=== PATIENT | male | born 1955 | race Caucasian/White ===

== ENCOUNTER 2017-01-23 09:34 | Emergency (ER) | payer SELFPAY ==
[~2017-01-23] VITALS: Ht 172.7 cm; Wt 99.2 kg
[~2017-01-23 09:34] MED LIST: Cleocin PO; ROBAXIN500 MG PO; ULTRAM50 MG PO; VOLTAREN75 MG PO; Vibramycin, Doryx PO; ZESTRIL5 MG PO; oxyCODONE PO
[2017-01-23] MEDS ORDERED: LISINOPRIL5 MG PO (11:19)
[2017-01-23] MEDS ORDERED: XANAX2 MG PO (11:19)
[2017-01-23] MEDS ORDERED: FLONASE16 G1 BOTH NARES (11:38)
[2017-01-23 11:56] VITALS: BP 120/73
== END 2017-01-23 11:56 | disposition home or self-care (01) ==
LOC: EME 09:34
DX: J06.9 Acute upper respiratory infection, unspecified (principal); I10 Essential (primary) hypertension; Z87.891 Personal history of nicotine dependence
CPT/HCPCS: 71020; 93005; 99281; 99283

== ENCOUNTER 2017-04-12 13:11 | Emergency (ER) | payer SELFPAY ==
[~2017-04-12] VITALS: Ht 172.7 cm; Wt 98.0 kg
[~2017-04-12 13:11] MED LIST changes: +FLONASE16 G1 BOTH NARES; +LISINOPRIL5 MG PO; +XANAX2 MG PO
[2017-04-12 14:40] LABS: HEMATOCRIT 44.6 % (38.0-50.0); MCH 31.1 PG (29.0-34.0); MCHC 35.4 G/DL (30.0-36.0); MCV 87.8 FL (86-99); MEAN PLAT.VOLUME 9.6 uM^3 (9.0-12.4); PLATELET COUNT 167 K/uL (156-360); RBC DIS.WIDTH-CV 12.2 % (11.8-14.6); RBC DIS.WIDTH-SD 39.3 % (39-53); RED BLOOD COUNT 5.08 M/uL (4.00-5.50); WHITE BLOOD COUNT 4.8 K/uL (4.1-10.2)
[2017-04-12 14:51] LABS: CHLORIDE 107 mEq/L (99-109); POTASSIUM 4.2 mEq/L (3.7-5.4); SODIUM 138 mEq/L (136-147)
[2017-04-12 14:53] LABS: GLUCOSE 92 mg/dL (70-99)
[2017-04-12 14:54] LABS: ANION GAP 8 MEQ/L (2-14)
[2017-04-12 14:55] LABS: TOTAL BILIRUBIN 1.2 mg/dL (0.0-1.0)
[2017-04-12 14:56] LABS: ALKALINE PHOSPHATASE 61 IU/L (3-129)
[2017-04-12 14:57] LABS: GFR ESTIMATE (CALCULATED) > 59 mL/min/
[2017-04-12 14:58] LABS: UREA NITROGEN (BUN) 10 mg/dL (9-23)
[2017-04-12] MEDS ORDERED: BACTRIM,SEPT1 TABLET PO (17:04)
[2017-04-12] MEDS ORDERED: KEFLEX500 MG PO (17:04)
[2017-04-12 18:02] VITALS: BP 127/84
== END 2017-04-12 18:02 | disposition home or self-care (01) ==
LOC: RME 13:11 → EME 13:11 → RME 18:02
PROVIDERS: Nurse Practitioner Family
DX: L03.116 Cellulitis of left lower limb (principal); R79.89 Other specified abnormal findings of blood chemistry; I10 Essential (primary) hypertension
CPT/HCPCS: 80053; 83605; 85027; 87040; 99281; 99284; J1885; J3370; J7030

== ENCOUNTER 2017-09-26 07:55 | Emergency (ER) | payer SELFPAY ==
[~2017-09-26] VITALS: Ht 172.7 cm; Wt 95.9 kg
[~2017-09-26 07:55] MED LIST changes: +BACTRIM,SEPT1 TABLET PO; +KEFLEX500 MG PO
[2017-09-26 08:51] LABS: HEMATOCRIT 47.7 % (38.0-50.0); MCH 31.1 PG (29.0-34.0); MCV 88.8 FL (86-99); MEAN PLAT.VOLUME 9.9 uM^3 (9.0-12.4); PLATELET COUNT 171 K/uL (156-360); RBC DIS.WIDTH-CV 11.9 % (11.8-14.6); RBC DIS.WIDTH-SD 39.1 % (39-53); RED BLOOD COUNT 5.37 M/uL (4.00-5.50); WHITE BLOOD COUNT 5.6 K/uL (4.1-10.2)
[2017-09-26 08:59] LABS: CHLORIDE 109 mEq/L (99-109); POTASSIUM 4.3 mEq/L (3.7-5.4); SODIUM 140 mEq/L (136-147)
[2017-09-26 09:01] LABS: GLUCOSE 96 mg/dL (70-99)
[2017-09-26 09:02] LABS: ANION GAP 8 MEQ/L (2-14)
[2017-09-26 09:04] LABS: GFR ESTIMATE (CALCULATED) > 59 mL/min/
[2017-09-26 09:05] LABS: UREA NITROGEN (BUN) 13 mg/dL (9-23)
[2017-09-26 09:11] LABS: TROP-I INTERPRETATION NEGATIVE; TROPONIN-I < 0.01 ng/mL (0.0-0.30)
[2017-09-26 11:14] LABS: TROP-I INTERPRETATION NEGATIVE; TROPONIN-I < 0.01 ng/mL (0.0-0.30)
[2017-09-26 12:12] VITALS: BP 129/95
== END 2017-09-26 12:12 | disposition home or self-care (01) ==
LOC: EME 07:55
PROVIDERS: Emergency Medicine
DX: R07.9 Chest pain, unspecified (principal); I10 Essential (primary) hypertension; F32.9 Major depressive disorder, single episode, unspecified; F41.9 Anxiety disorder, unspecified
CPT/HCPCS: 71020; 80048; 84484; 85027; 93005; 99281; 99284